=== PATIENT | female | born 2000 | race Caucasian/White ===

== ENCOUNTER 2021-02-21 16:29 | Emergency (ER) | payer OTHER ==
[~2021-02-21] VITALS: Ht 200.7 cm; Wt 72.6 kg
[~2021-02-21 16:29] MED LIST: FLOVENT HFA 1110 MCG IH; IBUPROFEN 600600 M1 PO; SINGULAIR 10 MG10 M1 PO; VENTOLIN HFA 1818 GM INH; ZYRTEC10 MG PO
[2021-02-21] MEDS ORDERED: PROAIR HFA8.5 GM INH (16:41)
[2021-02-21] MEDS ORDERED: APAP W/CODEINE1 TA2 PO (17:31)
[2021-02-21] MEDS ORDERED: FLEXERIL PO (17:32)
[2021-02-21 17:52] VITALS: BP 135/85
== END 2021-02-21 17:52 | disposition home or self-care (01) ==
LOC: M.ERS 16:29
DX: R51.9 Headache, unspecified (principal); J45.909 Unspecified asthma, uncomplicated; K21.9 Gastro-esophageal reflux disease without esophagitis; Z79.899 Other long term (current) drug therapy; Z88.8 Allergy status to other drugs, medicaments and biological substances; W01.0XXA Fall on same level from slipping, tripping and stumbling without subsequent striking against object, initial encounter; Y93.89 Activity, other specified; Y92.89 Other specified places as the place of occurrence of the external cause; Y99.8 Other external cause status